=== PATIENT | female | born 1960 ===

== ENCOUNTER 2022-01-12 09:26 | Outpatient (REF) | payer BC, SELFPAY ==
--- NOTE | ~2022-01-12 | MM_ITS ---
EXAMINATION: MM SCREENING DIGITAL BREAST TOMOSYNTHESIS, BILATERAL CLINICAL INFORMATION: Screening. Asymptomatic. The lifetime risk of breast cancer based on the Tyrer-Cuzick Model is 5.7%. COMPARISON: Mammography: May 27, 2013 and studies dating back to July 02, 2007 TECHNIQUE: Digital breast tomosynthesis is performed in both the craniocaudal and mediolateral oblique views along with computer-aided detection (CAD). Synthesized 2D images are generated from the tomosynthesis. FINDINGS: There are scattered areas of fibroglandular density (ACR BI-RADS breast composition Category b). There are no significant masses, abnormal calcifications, or other abnormalities. MM/MM tomosynthesis screening BI IMPRESSION: No significant changes from prior exam. ASSESSMENT: BI-RADS 1: Negative RECOMMENDATION: Routine annual mammography screening. This patient's information was entered into a reminder system with a target due date for their next mammogram.
== END 2022-01-12 09:27 | disposition home or self-care (01) ==
LOC: HO.MAMMO 09:26
PROVIDERS: PCP Registered Nurse; Visit Provider Registered Nurse
DX: Z12.31 Encounter for screening mammogram for malignant neoplasm of breast (principal)
CPT/HCPCS: 77063; 77067

== ENCOUNTER 2022-09-02 18:12 | Emergency (ER) | payer OTHER, BC, SELFPAY ==
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
[2022-09-02 18:27] VITALS: BP 159/95; BP 162/92; PULSE 78; PULSE 86; RESP 17; TEMP 36.5; O2SAT 96; O2SAT 99; BMI 29.2
--- OUTSIDE RECORDS SUMMARY | 2022-09-02 18:48 | XMS_ITS | Continuity of Care Document ---
Author Name Unknown Organization [facility] Address [address] [place] [phone]- Care Team Providers Care Duplication Specialist Name Role Phone Ginny Chavez Primary Care Physician [phone] [place] [facility] [place] 03/08/21 [facility] [address] [place] [phone]- Attending Physician: Elizabeth Mcgovern MD Admitting Physician: Elizabeth Mcgovern MD Referring Physician: Ginny Chavez Allergies, Adverse Reactions, Alerts Substance Reaction Severity Status NKA Active Medications Acapella (flutter valve) Acapella (flutter valve), See Instructions, # 1 each, Refills 0, Tot. Refills 0, Maintenance, [id number] (flutter valve) Dx, 09/13/20 13:35:00 EDT, Supply Start Date: 09/13/20 Status: Ordered albuterol 0.083% inhalation solution 3 mL = 2.5 mg, Inhalation, 2 times a day, PRN for wheezing, J7613, # 60 each, 3 Refills, Maintenance, 11/20/20 20:32:00 EDT, Solution, [id number], Partial fill upon patient request if the prescription is for a schedule II opioid drug., 193.04,... Start Date: 11/20/20 Status: Ordered amLODIPine 2.5 mg oral tablet 2.5 mg, 1, tablet, By Mouth, Daily, # 30 tablet, Refills 0, Maintenance, 09/13/20 11:51:00 EDT, Partial fill upon patient request if the prescription is for a schedule II opioid drug. Start Date: 09/13/20 Status: Ordered ergocalciferol 93281 iu oral capsule TAKE ONE CAPSULE BY MOUTH EVERY WEEK DIRECTED Start Date: 10/04/18 Status: Ordered Flovent HFA 220 mcg/inh inhalation aerosol 2 puffs, Inhalation, 2 times a day, # 12 Gm, 0 Refills, Maintenance, 09/13/20 14:12:00 EDT, Aerosol, Partial fill upon patient request if the prescription is for a schedule II opioid drug. Start Date: 09/13/20 Status: Ordered folic acid 1 mg oral tablet 1 mg, 1, tablet, By Mouth, Daily, # 30 tablet, Refills 0, Maintenance, 09/13/20 11:52:00 EDT, Partial fill upon patient request if the prescription is for a schedule II opioid drug. Start Date: 09/13/20 Status: Ordered gabapentin 300 mg oral capsule TAKE 1 CAPSULE BY MOUTH THREE TIMES A DAY DIRECTED Start Date: 10/04/18 Status: Ordered levothyroxine 0.112 mg oral tablet 0 Refills, Maintenance, 10/04/18 7:43:01 EDT Start Date: 10/04/18 Status: Ordered montelukast 10 mg oral tablet 10 mg, 1, tablet, By Mouth, Daily, Refills 0, Maintenance, 09/13/20 11:51:00 EDT, Partial fill uponpatient request if the prescription is for a schedule II opioid drug. Start Date: 09/13/20 Status: Ordered Nebulizer/Compressor See Instructions, # 1 each, Refills 11, Tot. Refills 11, Maintenance, E0570 Nebulizer A7003 Neb Disp Set A7014 Neb non-Disp Filter A7005 Neb Non-Disp set A7015 Aerosol Mask A7013 Neb Disp Filter length of need lifetime 99 months for home use Dx,... Start Date: 09/13/20 Status: Ordered ProAir HFA 90 mcg/inh inhalation aerosol 1 puffs, Inhalation, 4 times a day, PRN as needed for wheezing, # 6.7 Gm, 0 Refills, Maintenance, 09/13/20 11:51:00 EDT, Aerosol, Partial fill upon patient request if the prescription is for a schedule II opioid drug. Start Date: 09/13/20 Status: Ordered Vitamin B12 0 Refills, Maintenance, 09/13/20 11:52:00 EDT, Partial fill upon patient request if the prescription is for a schedule II opioid drug. Start Date: 09/13/20 Status: Ordered
--- OUTSIDE RECORDS SUMMARY | 2022-09-02 18:48 | XMS_ITS | Continuity of Care Document ---
Author Name Unknown Organization [facility] Address [address] [place] [phone]- Care Team Providers Care Project Management Manager Name Role Phone Ginny Chavez Primary Care Physician [phone] Encounter [facility] [place] Date(s): 11/04/21 - 12/04/21 [facility] [address] [place] [id number] Attending Physician: Corey [id number] Admitting Physician: Admtr, Ar8 Referring Physician: Admtr, Ar8 Allergies, Adverse Reactions, Alerts No Known Allergies Medications Acapella (flutter valve) Acapella (flutter valve), See Instructions, # 1 each, Refills 0, Tot. Refills 0, Maintenance, [id number] (flutter valve) Dx, 09/13/20 13:35:00 EDT, Supply Start Date: 09/13/20 Status: Ordered albuterol 0.083% inhalation solution 3 mL = 2.5 mg, Inhalation, 2 times a day, PRN for wheezing, J7613, # 60 each, 3 Refills, Maintenance, 11/20/20 20:32:00 EDT, Solution, [facility] #[id number], Partial fill upon patient request if [...] drug. Start Date: 09/13/20 Status: Ordered ergocalciferol 46340 iu oral capsule TAKE ONE CAPSULE BY [...] opioid drug. Start Date: 09/13/20 Status: Ordered Care Team Personnel Name: Ginny Chavez Address: [address] [place] [address], [address]
--- OUTSIDE RECORDS SUMMARY | 2022-09-02 18:48 | XMS_ITS | Continuity of Care Document ---
Author Name Unknown Organization [facility] Address [address] [place] [phone]- Care Team Providers Care Occupational Therapy Asst Name Role Phone Ginny Chavez Primary Care Physician [phone] Encounter [facility] [place] Date(s): 09/13/20 - 10/13/20 [facility] [address] [place] [address] Attending Physician: [id number] Admitting Physician: Admtr, Ar8 Referring Physician: Admtr, Ar8 Allergies, Adverse Reactions, Alerts Substance Reaction Severity Status NKA Active Medications Acapella (flutter valve) Acapella (flutter valve), See Instructions, # 1 each, Refills 0, Tot. Refills 0, Maintenance, B1510Umafbsze (flutter valve) Dx, 09/13/20 13:35:00 EDT, Supply Start Date: 09/13/20 Status: Ordered amLODIPine 2.5 mg oral tablet 2.5 mg, 1, tablet, By Mouth, Daily, # 30 tablet, Refills 0, Maintenance, 09/13/20 11:51:00 EDT, Partial fill upon patient request if the prescription is for a schedule II opioid drug. Start Date: 09/13/20 Status: Ordered ergocalciferol 00213 iu oral capsule TAKE ONE CAPSULE BY [...]
--- OUTSIDE RECORDS SUMMARY | 2022-09-02 18:48 | XMS_ITS | Continuity of Care Document ---
Author Name Unknown Organization [facility] Address [address] [place] [phone]- Care Team Providers Care Director Geothermal Operations Name Role Phone Ginny Chavez Primary Care Physician [place] [facility] [place] Date(s): 07/03/20 - 09/07/20 [facility] [address] [place] [phone]- Attending Physician: Elizabeth Mcgovern MD Admitting Physician: Elizabeth Mcgovern MD Allergies, Adverse Reactions, Alerts Substance Reaction Severity Status NKA Active Medications ergocalciferol 06067 iu oral capsule TAKE ONE CAPSULE BY MOUTH EVERY WEEK DIRECTED Start Date: 10/04/18 Status: Ordered gabapentin 300 mg oral capsule TAKE 1 CAPSULE BY MOUTH THREE TIMES A DAY DIRECTED Start Date: 10/04/18 Status: Ordered levothyroxine 0.112 mg oral tablet 0 Refills, Maintenance, 10/04/18 7:43:01 EDT Start Date: 10/04/18 Status: Ordered
--- OUTSIDE RECORDS SUMMARY | 2022-09-02 18:48 | XMS_ITS | Continuity of Care Document ---
Author Name Unknown Organization [facility] Address [address] [place] [phone]- Care Team Providers Care Concrete Foreman Name Role Phone Ginny Chavez Primary Care Physician [phone] [place] [facility] [place] 12/04/21 [facility] [address] [place] [id number] Attending Physician: Elizabeth Mcgovern MD Admitting Physician: Elizabeth Mcgovern MD Referring Physician: Ginny hCavez Allergies, Adverse Reactions, Alerts No Known Allergies Medications Acapella (flutter valve) Acapella (flutter valve), See Instructions, # 1 each, Refills 0, Tot. Refills 0, Maintenance, [id number] (flutter valve) Dx, 09/13/20 13:35:00 EDT, Supply Start Date: 09/13/20 Status: Ordered albuterol 0.083% inhalation solution 3 mL = 2.5 mg, Inhalation, 2 times a day, PRN for wheezing, J7613, # 60 each, 3 Refills, Maintenance, 11/20/20 20:32:00 EDT, Solution, [facility] #[id number], Partial fill upon patient request if [...] drug. Start Date: 09/13/20 Status: Ordered ergocalciferol 89872 iu oral capsule TAKE ONE CAPSULE BY [...] Care Team Personnel Name: Ginny Chavez Address: [address] [place] [address], [address] [place] [address]
--- OUTSIDE RECORDS SUMMARY | 2022-09-02 18:48 | XMS_ITS | Continuity of Care Document ---
Author Name Unknown Organization [facility] Address [address] [place] [address]- Care Team Providers Care Aws Solution Architect Name Role Phone Ginny Chavez Primary Care Physician [phone] [place] [facility] [place](s): 09/13/20 - 10/13/20 [facility] [address] [place] [phone]- Allergies, Adverse Reactions, Alerts Substance Reaction Severity Status NKA Active Medications Acapella (flutter valve) Acapella (flutter valve), See Instructions, # 1 each, Refills 0, Tot. Refills 0, Maintenance, I9098Xcbbuljz (flutter valve) Dx, 09/13/20 13:35:00 EDT, Supply Start Date: 09/13/20 Status: Ordered amLODIPine 2.5 mg oral tablet 2.5 mg, 1, tablet, By Mouth, Daily, # 30 tablet, Refills 0, Maintenance, 09/13/20 11:51:00 EDT, Partial fill upon patient request if the prescription is for a schedule II opioid drug. Start Date: 09/13/20 Status: Ordered ergocalciferol 84085 iu oral capsule TAKE ONE CAPSULE BY [...]
[2022-09-02] MEDS: Acetaminophen 325 MG TABLET 975 MG PO (19:45)
[2022-09-02 20:00] VITALS: BP 120/82; PULSE 72; RESP 16; TEMP 36.6; O2SAT 98
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
[2022-09-02 21:43] VITALS: BP 132/81; PULSE 70; RESP 16; TEMP 36.5; O2SAT 98
== END 2022-09-02 21:59 | disposition home or self-care (01) ==
PROVIDERS: Emergency Provider Emergency Medicine
DX: S16.1XXA Strain of muscle, fascia and tendon at neck level, initial encounter (principal); V43.52XA Car driver injured in collision with other type car in traffic accident, initial encounter; Y93.9 Activity, unspecified; Y92.9 Unspecified place or not applicable; Y99.9 Unspecified external cause status; R51.9 Headache, unspecified; M54.2 Cervicalgia
CPT/HCPCS: 70450; 72125; 99284

== ENCOUNTER 2023-01-18 09:38 | Outpatient (REF) | payer BC, SELFPAY ==
--- NOTE | ~2023-01-18 | MM_ITS ---
EXAMINATION: MM SCREENING DIGITAL BREAST TOMOSYNTHESIS, BILATERAL CLINICAL INFORMATION: Screening. Asymptomatic. COMPARISON: Mammography: This study is compared with prior exams dating back to 2013. TECHNIQUE: Digital breast tomosynthesis is performed in both the craniocaudal and mediolateral oblique views along with computer-aided detection (CAD). Synthesized 2D images are generated from the tomosynthesis. FINDINGS: There are scattered areas of fibroglandular density (ACR BI-RADS breast composition Category b). There are no significant masses, abnormal calcifications, or other abnormalities. MM/MM tomosynthesis screening BI IMPRESSION: No mammographic evidence of malignancy. ASSESSMENT: BI-RADS BI-RADS 1 - Negative RECOMMENDATION: Routine annual mammography screening. 1 year F/U This examination should not preclude the clinical evaluation of a suspicious palpable abnormality. This patient's information was entered into a reminder system with a target due date for their next mammogram.
== END 2023-01-18 09:39 | disposition home or self-care (01) ==
LOC: HO.MAMMO 09:38
PROVIDERS: PCP Registered Nurse; Visit Provider Registered Nurse
DX: Z12.31 Encounter for screening mammogram for malignant neoplasm of breast (principal)
CPT/HCPCS: 77063; 77067

== ENCOUNTER → 2023-01-18 09:45 | Outpatient (BNV) | payer BC, SELFPAY | PROVIDERS: PCP Registered Nurse; Visit Provider Radiology Diagnostic Radiology | DX: Z12.31 Encounter for screening mammogram for malignant neoplasm of breast (principal) | CPT/HCPCS: 77063; 77067 ==

== ENCOUNTER 2024-02-21 07:44 | Outpatient (REF) | payer BC, SELFPAY ==
--- NOTE | ~2024-02-21 | MM_ITS ---
EXAMINATION: MM SCREENING DIGITAL BREAST TOMOSYNTHESIS, BILATERAL CLINICAL INFORMATION: Screening. Asymptomatic. COMPARISON: Mammography: Comparison is made with available priors TECHNIQUE: Digital breast mammography with tomosynthesis is performed in both the craniocaudal and mediolateral oblique views along with computer-aided detection (CAD). FINDINGS: There are scattered areas of fibroglandular density (ACR BI-RADS breast composition Category b). There are no significant masses, abnormal calcifications, or other abnormalities. MM/MM tomosynthesis screening BI IMPRESSION: No mammographic evidence of malignancy. ASSESSMENT: BI-RADS BI-RADS 1 - Negative RECOMMENDATION: Routine annual mammography screening. 1 year F/U This examination should not preclude the clinical evaluation of a suspicious palpable abnormality. This patient's information was entered into a reminder system with a target due date for their next mammogram. Electronically signed by: Carol Carr DO 02/25/2024 10:31 AM HECTOR
== END 2024-02-21 07:45 | disposition home or self-care (01) ==
LOC: HO.MAMMO 07:44
PROVIDERS: PCP Registered Nurse; Visit Provider Registered Nurse
DX: Z12.31 Encounter for screening mammogram for malignant neoplasm of breast (principal)
CPT/HCPCS: 77063; 77067

== ENCOUNTER → 2024-02-21 07:45 | Outpatient (BNV) | payer BC, SELFPAY | PROVIDERS: PCP Registered Nurse; Visit Provider Internal Medicine | DX: Z12.31 Encounter for screening mammogram for malignant neoplasm of breast (principal) | CPT/HCPCS: 77063; 77067 ==